=== PATIENT | female | born 1980 | race Caucasian/White ===

== ENCOUNTER 2019-10-04 14:59 | Emergency (ER) | payer OTHER, SELFPAY ==
--- NOTE | ~2019-10-04 | XR_ITS ---
XR chest 2V 10/04/2019 17:16 Indication: Cough. Difficulty breathing. Fever. Procedure: 2 view chest Comparison: 04/26/2010 Findings: Patchy bilateral airspace disease predominantly affecting the left mid and bilateral lower lungs, compatible with pneumonia. No pleural effusion or pneumothorax. Heart size normal. No acute os seous abnormality. Impression: 1: Patchy bilateral airspace disease, compatible with pneumonia. Reviewed, dictated and finalized at location A. Impression: 1: Patchy bilateral airspace disease, compatible with pneumonia.
[2019-10-04 15:56] VITALS: BP 115/64; PULSE 123; RESP 24; TEMP 38.7; O2SAT 97
--- NOTE | 2019-10-04 16:06 | ED.GENADULT ---
HPI - General Adult General Chief complaint: Shortness of Breath/Dyspnea Stated complaint: back pain/chest pain/cough Time Seen by Provider: 10/04/19 16:03 Source: patient and RN notes reviewed Mode of arrival: ambulatory Limitations: no limitations History of Present Illness HPI narrative: 39-year-old female presents with mother, Magalie complain of tactile fever, upper respiratory infection symptoms, dysnea, wheezing, cough with intermittent upper back tenderness for the past 5 days. Mucinex cold and flu and Aleve with little relief, Increase symptoms today with dyspnea and coughing. Cough is persistent, worse when she lies down. Feels ill. Chest feels Heavy. Short of breath when ambulating and at rest. Tactile high fever, chills, and sweats. Exacerbating factor consists of smoke exposure. No nausea, vomiting, and abdominal pain. Denies chest pain, coughing up blood, difficulty swallowing, jaw pain, dental pain, facial pain, foreign body sensation, and rash. Magalie denies being , LMP 1 week ago. Some parts of this dictation were generated by voice recognition software and may contain typographical and/or grammatical inaccuracies. Related Data Home Medications Medication Instructions Recorded Confirmed Mucinex 600 mg PO BID 10/04/19 10/06/19 levothyroxine 75 mcg PO DAILY 10/04/19 10/06/19 omeprazole 20 mg PO DAILY 10/04/19 10/06/19 Allergies Allergy/AdvReac Type Severity Reaction Status Date / Time No Known Allergies Allergy Mild Verified 10/05/19 23:24 Review of Systems Review of Systems: Narrative: CONSTITUTIONAL: Complains of fever, chills, sweats. EYES: Denies visual changes, redness, discharge. ENT: Complains of rhinorrhea, congestion. Denies sore throat. CARDIOVASCULAR: Denies chest pain, palpitations, edema. RESPIRATORY: Complains of wheezes, dyspnea, persistent dry cough. GASTROINTESTINAL: Denies abdominal pain, nausea, vomiting, diarrhea. GENITOURINARY: Denies dysuria, hematuria, abnormal discharge. SKIN: SKIN: Denies rash or itching. MUSCULOSKELETAL: Denies myalgia. Complains of diffused chest wall and upper back tenderness. NEUROLOGIC: Denies numbness or focal weakness. PSYCHIATRIC: Denies anxiety or depression. [facility] Social History Social History Smoking packs per day: 0.5 Smoking cigarettes per day: 10.0 Years smoked: 20 Smoking pack-years: 10.00 Smoking status: Current every day smoker Tobacco type: cigarettes Second hand tobacco smoke exposure: No Alcohol intake: never Substance use: never Gender identity (if verbalized by the patient): Female Spiritual care concerns: No Agree to blood products: Yes Comments At time of signature, agree with nurse past medical, surgical, social, and family history. There is no relevant family history pertinent to the presenting complaint. Exam Narrative: Exam Narrative: GENERAL: This is a well-nourished, well-developed patient, in no apparent distress. Talking in full sentences without deficit and ambulate with steady gait without dyspnea. HEAD: normocephalic, atraumatic. EYES: PERRL. Sclera clear/white. Vision is grossly intact. THROAT: Mucous membranes moist, posterior pharynx clear. NECK: Neck supple, non-tender without lymphadenopathy, masses or thyromegaly. CARDIOVASCULAR: Regular rate and rhythm without murmurs, gallops, or rubs. Diffused mild-moderate reproducible tenderness to chest wall. No crepitus/subq air palpable. Skin intact. No ecchymosis or lesions. No subcutaneous emphysema. RESPIRATORY: Inspiratory and expiratory wheezes in all elias to auscultation with fair gas exchange. Breath sounds equal bilaterally. No rales or rhonchi. GASTROINTESTINAL: Abdomen soft, non-tender, nondistended. Bowel sounds are active. No hepato-splenomegaly, or palpable masses. No guarding. SKIN: warm, intact with no suspicious lesions or rash, good texture and turgor. MARTELL
[2019-10-04] MEDS: predniSONE 20 MG TABLET 60 MG PO (16:21)
[2019-10-04] MEDS: AZITHROMYCIN 250 MG TABLET 500 MG PO (16:22)
[2019-10-04] MEDS: ALBUTEROL SULFATE NEB 2.5 MG/3 ML INH INHALATION (16:22)
[2019-10-04] MEDS: IBUPROFEN 400 MG TABLET 800 MG PO (16:22)
[2019-10-04] MEDS: IPRATROPIUM BR 0.02% INH SOLN 0.5 MG/2.5 ML VIAL INHALATION (16:23)
--- NOTE | 2019-10-04 16:33 | PC.NURSE ---
meds given per order, receiving neb now
[2019-10-04 17:49] VITALS: BP 125/62; PULSE 122; RESP 20; TEMP 38.2; O2SAT 96
== END 2019-10-04 17:50 | disposition home or self-care (01) ==
PROVIDERS: Emergency Provider Nurse Practitioner Family
DX: R05 Cough (principal); J18.9 Pneumonia, unspecified organism; F17.210 Nicotine dependence, cigarettes, uncomplicated; K21.9 Gastro-esophageal reflux disease without esophagitis; E03.9 Hypothyroidism, unspecified
CPT/HCPCS: 71046; 99213; A9270; G0463; J7512

== ENCOUNTER 2019-10-05 20:45 | Inpatient (IN) | payer OTHER, SELFPAY ==
--- NOTE | ~2019-10-05 | XR_ITS ---
XR chest 1V 10/05/2019 22:24 Indication: Pneumonia. Nausea and vomiting. Procedure: AP portable chest Comparison: 10/04/2019 Findings: Patchy bilateral airspace disease, compatible with pneumonia. No pleural effusion. No pneum othorax. Heart size upper normal for technique. Impression: 1: Patchy bilateral airspace disease, compatible with pneumonia. No significant change allowing for t echnique. Reviewed, dictated and finalized at location A. Impression: 1: Patchy bilateral airspace disease, compatible with pneumonia. No significant change allowing for technique.
[2019-10-05 20:57] VITALS: BP 122/65; PULSE 100; RESP 16; TEMP 36.3; O2SAT 100
[2019-10-05 21:09] LABS: Basophils Percent Auto 0.2 % (0.2-1.2); Hematocrit 31.1 % (37.0-47.0); Hemoglobin 9.7 g/dL (12.0-15.0); Immature Granulocyte Percent A 0.5 % (0-0.5); Lymphocytes Absolute Auto 1.37 K/mm3 (0.9-3.2); Lymphocytes Percent Auto 6.4 % (18.3-44.2); Mean Corpuscular HGB Conc 31.2 g/dl (32-36); Mean Corpuscular Hemoglobin 23.1 pg (26-34); Monocytes Absolute Auto 0.6 K/mm3 (0.1-0.6); Monocytes Percent Auto 2.7 % (2.6-8.5); Neutrophils Absolute Auto 19.4 K/mm3 (1.3-6.7); Neutrophils Percent Auto 90.2 % (45.5-73.1); Platelet Count Result 297 k/mm3 (150-375); White Blood Count 21.5 K/mm3 (4.5-10.0)
[2019-10-05 21:19] LABS: Ovalocytes 1+ (NORMAL); Platelet Estimate Adequate (Adequate)
[2019-10-05 21:21] LABS: Alanine Aminotransferase 37 U/L (4-35); Albumin Level 4.2 g/dL (3.5-5.1); Alkaline Phosphatase 78 U/L (38-126); Aspartate Amino Transferase 50 U/L (14-36); Bilirubin,Total 0.4 mg/dL (0.2-1.3); Blood Urea Nitrogen 15 mg/dL (7-17); Calcium 9.5 mg/dL (8.4-10.2); Carbon Dioxide 21 mmol/L (22-30); Chloride 107 mmol/L (98-107); Estimated CRCL calculation 99 ml/min; Estimated Glomerular Filt Rate > 60; Glucose 134 mg/dL (65-105); Lipase 13 U/L (23-300); Potassium 3.2 mmol/L (3.4-5.0); Sodium 139 mmol/L (137-145)
[2019-10-05 22:02] LABS: Add Urine Microscopic? YES; Appearance Urine Clear (Clear); Bilirubin Urine 1+ (Negative); Blood Urine 1+ (Negative); Color Urine Yellow (Yellow); Glucose Urine UA Negative (Negative); Ketones Urine Trace mg/dL (Negative); Leukocyte Esterase Ur Negative LEU/UL (Negative); Mucus Urine Heavy /lpf; Nitrate Urine Negative (Negative); Protein Urine 1+ mg/dL (Negative); Specific Grav Ur 1.038 (1.001-1.035); Squamous Epithelial Cell Urine Few /hpf (Few); Urobilinogen Urine Negative mg/dL (<2.0); WBC Urine 0-3 /hpf
--- NOTE | 2019-10-05 22:04 | ED.NAVMDI ---
HPI - Nausea/Vomiting/Diarrhea General Chief complaint: Nausea/Vomiting/Diarrhea Stated complaint: n/v Time Seen by Provider: 10/05/19 21:46 Source: patient and RN notes reviewed Mode of arrival: ambulatory Limitations: no limitations History of Present Illness HPI Narrative: A 39 y/o female presents to the ED with N/V beginning this morning. She states that she was dx with pneumonia at yesterday. She reports that she has vomited roughly 12 times today and that eating and drinking aggravate her symptoms. She notes that shes had a cough and diarrhea for the past week, and that she had a fever which has since resolved. She also notes that she was placed on a Z-pack and Augmentin yesterday. She denies any ABD pain, CP, or SOB. MD elicited complaint: nausea and vomiting Onset (ago): hour(s) (this morning) Associated nausea: Yes Associated abdominal pain: No Location of pain: none Exacerbating factors: eating (and drinking) Relieving factors: none Context: recent antibiotic use and new medication Associated symptoms: cough, fever/chills (fevers resolved) and other (diarrhea) Related Data Home Medications Medication Instructions Recorded Confirmed Mucinex 10/04/19 levothyroxine 10/04/19 omeprazole 10/04/19 Allergies Allergy/AdvReac Type Severity Reaction Status Date / Time No Known Allergies Allergy Mild Verified 10/05/19 23:24 Review of Systems Review of Systems: All systems reviewed & are unremarkable except as noted in HPI and below Constitutional: Constitutional: Reports fever(s) (resolved) Cardiovascular: Cardiovascular: Denies chest pain Respiratory: Respiratory: Reports cough and Denies dyspnea Gastrointestinal: Gastrointestinal: Denies abdominal pain, Reports diarrhea, Reports nausea and Reports vomiting PMFSH Past Medical History Medical History Bronchitis History of gastroesophageal reflux (GERD) Hypothyroidism Walking pneumonia Surgical History Surgical History No significant past surgical history Family History Family History Mother Hypertension Social History Social History Smoking packs per day: 0.5 Smoking cigarettes per day: 10.0 Years smoked: 20 Smoking pack-years: 10.00 Smoking status: Current every day smoker Second hand tobacco smoke exposure: No Alcohol intake: never Substance use: never Gender identity (if verbalized by the patient): Female Exam Narrative: Exam Narrative: General appearance: Well-developed, well-nourished, moderately side, patient looks ill with intermittent persistent coughing Skin: Normal color Head: Normocephalic, nontraumatic Eyes: Clear conjunctiva ENT: Oropharynx normal, ears normal, nose normal Neck: Supple, nontender Chest and respiratory: Airway patent, no respiratory distress, no accessory muscle use, diminution of air entry bilaterally, scattered rhonchi Heart: Regular rate/rhythm Abdomen: Soft, nontender, no organomegaly, quiet bowel sounds Vascular: Normal peripheral pulses, normal capillary refill. Musculoskeletal: Normal range of motion, nontender back Neurologic: Alert and oriented ?3, CLINICAL RESEARCH NURSE is normal as tested, no gross motor deficit Course Course Emergency Course: Improving Consultations Consultation #1: Discussed case with Dr. King (Hospitalist). Accepts the pt. Date: 10/05/19 Time: 23:02 Vital Signs Vital signs: Vital Signs Temperature 36.3 C L 10/05/19 20:57 Pulse Rate 100 10/05/19 20:57 Respiratory Rate 16 10/05/19 20:57 Blood Pressu
[2019-10-05] MEDS: KETOROLAC 30 MG/ML VIAL (*BKC) IV PUSH (22:33)
[2019-10-05] MEDS: SODIUM CHLORIDE 0.9% IV 1,000 ML 999 ML IV CONT (22:34)
[2019-10-05] MEDS: ONDANSETRON INJ 4 MG/2 ML VIAL IV PUSH (22:34)
[2019-10-05 23:11] VITALS: BP 119/75; PULSE 95; RESP 20; O2SAT 94
--- NOTE | 2019-10-05 23:15 | PC.NURSE ---
Assumed care of patient from KELL Springer. Patient resting in stretcher with visitor at bedside, medications administered per MAR. VSS, call light within reach, Dr. King at bedside.
--- NOTE | 2019-10-05 23:27 | PM.IMHP ---
H&P: HPI History of Present Illness Chief complaint: Pneumonia, tobacco dependence, hypokalemia Narrative: This is a 39 year old obese female with known history of hypothyroidism and GERD who presented to the hospital with a history of 1 week of nonproductive hacking persistent cough, fever, wheezing, and shortness of breath. The patient was started on azithromycin and Augmentin yesterday and today she started to have nausea and vomiting. She reports that she vomited 12 times. She reported that any PO intake worsens her nausea. She also reports mild right costal tenderness w/ coughing. She did have a sore throat a few days ago but this has resolved. Sick contacts++ Her nephews had strep throat this past week. The patient was evaluated in the ER and found to have an elevated WBC of 21,500 and CXR demonstrated patchy bilateral airspace disease. Review of Systems Review of Systems: All systems reviewed & are unremarkable except as noted in HPI and below PMFSH Past Medical History Medical History Bronchitis History of gastroesophageal reflux (GERD) Hypothyroidism Walking pneumonia Surgical History Surgical History No significant past surgical history Family History Family History Mother Hypertension Social History Social History Smoking packs per day: 0.5 Smoking cigarettes per day: 10.0 Years smoked: 20 Smoking pack-years: 10.00 Smoking status: Current every day smoker Tobacco type: cigarettes Second hand tobacco smoke exposure: No Alcohol intake: never Substance use: never Gender identity (if verbalized by the patient): Female Spiritual care concerns: No Agree to blood products: Yes Meds Home Medications and Allergies Home Medications Medication Instructions Recorded Confirmed Type Mucinex 600 mg PO BID 10/04/19 10/06/19 History albuterol sulfate [ProAir HFA] 2 puff INHALATION Q4H #18 gm 10/04/19 10/06/19 Rx amoxicillin-pot clavulanate 1 tablet PO Q12H #14 tablet 10/04/19 10/06/19 Rx azithromycin See Rx Instructions .ROUTE 10/04/19 10/06/19 Rx .COMPLEX #6 tablet benzonatate 100 mg PO TID #30 cap 10/04/19 10/06/19 Rx fluticasone propionate [Allergy 1 spray NASAL BID #16 ml 10/04/19 10/06/19 Rx Relief (fluticasone)] inhalational spacing device #1 each 10/04/19 10/06/19 Rx levothyroxine 75 mcg PO DAILY 10/04/19 10/06/19 History loratadine [Claritin] 10 mg PO DAILY 30 Days #30 tablet 10/04/19 10/06/19 Rx omeprazole 20 mg PO DAILY 10/04/19 10/06/19 History Allergies Allergy/AdvReac Type Severity Reaction Status Date / Time No Known Allergies Allergy Mild Verified 10/05/19 23:24 Vital Signs Vital Signs - 24 hr 10/05/19 20:57 10/05/19 23:11 Temperature 36.3 C L Pulse Rate 100 95 Respiratory Rate 16 20 Blood Pressure 122/65 119/75 Pulse Oximetry 100 94 Exam Const: General: cooperative, alert, awake and anxious Nutritional Appearance: obese Orientation/consciousness: patient oriented x3 HENMT: Head: normal to inspection General nose exam: Normal external nose present Face and sinus: normal facial exam Mouth: Yes Normal oral and palatal mucosa present and Yes oropharynx normal Eyes: Pupils: Equal, round and reactive pupils present EOM: EOMs intact bilaterally Neck: Neck: supple and no JVD Thyroid: thyroid normal Lymphatic: lymphadenopathy not noted Resp: Effort & Inspection: normal respiratory effort Auscultation: crackles bilateral and wheezes throughout Cardio: Rate: tachycardic Rhythm: regular rhythm Heart sounds: no murmurs GI: Inspection: normal to inspection Auscultation: normal bowel sounds Skin: General skin exam: normal color and no rashes or lesions noted Neuro: General: patient oriented x3 Cranial nerves: Yes CN's II-XII
[2019-10-05 23:51] VITALS: TEMP 36.9
[2019-10-06] VITALS (16 sets, daily range): BP systolic 105–128; BP diastolic 44–75; PULSE 96–113; RESP 16–22; TEMP 36.1–37.3; O2SAT 90–99; BMI 36.8
[2019-10-06] MEDS: LACTATED RINGERS 1,000 ML 125 ML IV CONT ×3 (01:04→20:59)
[2019-10-06] MEDS: KCL 20 MEQ/SW 100 ML 100 ML 50 MEQ IVPB (01:04)
[2019-10-06] MEDS: ALBUTEROL SULFATE NEB 2.5 MG/0.5 ML INH 5 MG INHALATION ×3 (02:28→14:26)
[2019-10-06 05:12] LABS: Basophils Percent Auto 0.1 % (0.2-1.2); Hematocrit 26.8 % (37.0-47.0); Hemoglobin 8.4 g/dL (12.0-15.0); Immature Granulocyte Absolute 0.12 K/mm3 (0.00-0.031); Immature Granulocyte Percent A 0.6 % (0-0.5); Lymphocytes Absolute Auto 2.94 K/mm3 (0.9-3.2); Lymphocytes Percent Auto 14.6 % (18.3-44.2); Mean Corpuscular HGB Conc 31.3 g/dl (32-36); Mean Corpuscular Hemoglobin 23.1 pg (26-34); Mean Corpuscular Volume 73.8 fl (80-100); Mean Platelet Volume 8.9 fl (7.4-10.4); Monocytes Absolute Auto 0.7 K/mm3 (0.1-0.6); Monocytes Percent Auto 3.7 % (2.6-8.5); Neutrophils Absolute Auto 16.3 K/mm3 (1.3-6.7); Platelet Count Result 278 k/mm3 (150-375); Red Blood Count 3.63 M/mm3 (4.2-5.4); Red Cell Distribution Width 15.9 % (11.5-14.5); White Blood Count 20.1 K/mm3 (4.5-10.0)
[2019-10-06 05:30] LABS: Blood Urea Nitrogen 12 mg/dL (7-17); Calcium 8.6 mg/dL (8.4-10.2); Carbon Dioxide 20 mmol/L (22-30); Chloride 107 mmol/L (98-107); Estimated CRCL calculation 114 ml/min; Estimated Glomerular Filt Rate > 60; Glucose 90 mg/dL (65-105); Magnesium 1.8 mg/dL (1.6-2.3); Potassium 2.9 mmol/L (3.4-5.0); Sodium 137 mmol/L (137-145)
[2019-10-06] MEDS: LEVOTHYROXINE SODIUM INJ 100 MCG/5 ML VIAL 37.5 MCG IV PUSH (06:39)
[2019-10-06] MEDS: ACETAMINOPHEN 325 MG TABLET 650 MG PO ×3 (06:51→18:05)
[2019-10-06] MEDS: PANTOPRAZOLE SODIUM IV 40 MG VIAL IV PUSH (08:02)
[2019-10-06] MEDS: POTASSIUM CHLORIDE 20 MEQ PACKET (FOR LIQUID) PO (08:02)
[2019-10-06 13:43] LABS: IFOB Positive Control Positive; Immunochemical Fecal Occult Bl Negative (N)
--- NOTE | 2019-10-06 16:54 | PM.IMPN ---
Progress Note: A&P Assessment and Plan (1) Bilateral pneumonia: Qualifiers: Lung location: unspecified part of lung Pneumonia type: due to unspecified organism Qualified Code(s): J18.9 - Pneumonia, unspecified organism Code(s): J18.9 - Pneumonia, unspecified organism Status: Acute Assessment and Plan: Pt with cough since last Wednesday and GI sx with onset . Febrile at admission which has resolved. She also endorses body aches (back, mild). She denies chest pain. Viral vs. Bacterial pneumonia? Continue empiric IV azithromycin and ceftriaxone Blood and sputum cultures pending Legionella and pneumococcal urine antigen ordered and pending Continue bronchodilators Continue chest physiotherapy Continuous pulse oximetry Supplemental oxygen as needed to maintain pulse ox >92% Will order influenza testing as I do not see this documented in the chart (2) Sepsis: Qualifiers: Sepsis acute organ dysfunction status: without acute organ dysfunction Sepsis type: sepsis due to unspecified organism Qualified Code(s): A41.9 - Sepsis, unspecified organism Code(s): A41.9 - Sepsis, unspecified organism Status: Acute Assessment and Plan: Pt meeting SIRS criteria. Suspected source is pneumonia. She was febrile at admission. She has no fevers today. Continue empiric antibiotic therapy Blood cultures pending Continue IV fluids (3) Leukocytosis: Qualifiers: Leukocytosis type: unspecified Qualified Code(s): D72.829 - Elevated white blood cell count, unspecified Code(s): D72.829 - Elevated white blood cell count, unspecified Status: Acute Assessment and Plan: Suspect that this is secondary to pneumonia. She has a left shift. Will continue to monitor (4) Hypokalemia: Code(s): E87.6 - Hypokalemia Status: Acute Assessment and Plan: Potassium 2.9 today. Pt received 40mEq IV. Will continue to monitor and replace as indicated (5) Hypothyroidism: Qualifiers: Hypothyroidism type: unspecified Qualified Code(s): E03.9 - Hypothyroidism, unspecified Code(s): E03.9 - Hypothyroidism, unspecified Status: Chronic Assessment and Plan: Continue levothryoxine Will check TSH w reflex to fT4 (6) History of gastroesophageal reflux (GERD): Code(s): Z87.19 - Personal history of other diseases of the digestive system Status: Chronic Assessment and Plan: Continue PPI therapy (7) Transaminitis: Code(s): R74.0 - Nonspecific elevation of levels of transaminase and lactic acid dehydrogenase [LDH] Status: Acute Assessment and Plan: Pt with transaminitis at admission. She reports hx of cirrhosis of unknown cause. She reports this was discovered on CT abd/pelvis from [facility]. She also saw GI at [facility]. Will request records Will repeat LFTs tomorrow Subjective Date/time seen: 10/06/19 16:54 Interval history: Mrs. Thibodeaux is seen and examined at bedside. She reports that she is feeling somewhat better. She reports frequent green/yellow diarrhea (5x today). She reports appetite is fine and she was able to eat lunch without vomiting or significant nausea. She denies chest pain. She denies SOB. She reports nonproductive cough. She has mild costal tenderness from her repeated episodes of vomiting yesterday and her cough. Review of Systems Review of Systems: All systems reviewed & are unremarkable except as noted in HPI and below Exam Narrative: Exam Narrative: General: Obese female sitting up in bed. No acute distress. Cooperative. Head: Normocephalic and atraumatic. Eyes: Conjunctivae and lids normal. PERRL. EOMI. Ears: External ears normal without lesions or deformity. Nose: External nose normal without nasal discharge. Mouth and Throat: Mucous membranes dry. Posterior pharynx without erythema or exudate. Neck: Supple. No lym
[2019-10-06 18:14] LABS: Influenza Control Positive
[2019-10-06] MEDS: FLUTICASONE PROPIONATE 0.05% NA SPR 16 GM BTL (*BKC) 1 SPRAY NASAL (18:43)
[2019-10-06 19:02] LABS: Potassium 3.3 mmol/L (3.4-5.0)
[2019-10-06] MEDS: LEVALBUTEROL NEB 1.25 MG/3 ML 0.63 MG INHALATION (21:03)
[2019-10-06] MEDS: POTASSIUM CHLORIDE 20 MEQ TABLET.ER PO (21:31)
[2019-10-07] VITALS (9 sets, daily range): BP systolic 123–129; BP diastolic 69–83; PULSE 96–110; RESP 18–20; TEMP 36.1–36.7; O2SAT 91–96
[2019-10-07] MEDS: LEVALBUTEROL NEB 1.25 MG/3 ML 0.63 MG INHALATION ×3 (02:09→16:05)
[2019-10-07 05:43] LABS: Basophils Percent Auto 0.1 % (0.2-1.2); Hematocrit 24.9 % (37.0-47.0); Hemoglobin 7.7 g/dL (12.0-15.0); Immature Granulocyte Absolute 0.11 K/mm3 (0.00-0.031); Immature Granulocyte Percent A 0.8 % (0-0.5); Lymphocytes Absolute Auto 1.99 K/mm3 (0.9-3.2); Lymphocytes Percent Auto 14.9 % (18.3-44.2); Mean Corpuscular HGB Conc 30.9 g/dl (32-36); Mean Corpuscular Volume 74.3 fl (80-100); Mean Platelet Volume 9.1 fl (7.4-10.4); Monocytes Absolute Auto 0.7 K/mm3 (0.1-0.6); Monocytes Percent Auto 5.2 % (2.6-8.5); Neutrophils Absolute Auto 10.6 K/mm3 (1.3-6.7); Platelet Count Result 288 k/mm3 (150-375); Red Blood Count 3.35 M/mm3 (4.2-5.4); Red Cell Distribution Width 16.2 % (11.5-14.5); White Blood Count 13.4 K/mm3 (4.5-10.0)
[2019-10-07] MEDS: LEVOTHYROXINE SODIUM 75 MCG TABLET PO (05:43)
[2019-10-07] MEDS: LACTATED RINGERS 1,000 ML 125 ML IV CONT (05:45)
[2019-10-07 06:04] LABS: Alanine Aminotransferase 24 U/L (4-35); Albumin Level 3.3 g/dL (3.5-5.1); Alkaline Phosphatase 68 U/L (38-126); Aspartate Amino Transferase 28 U/L (14-36); Bilirubin,Total 0.2 mg/dL (0.2-1.3); Blood Urea Nitrogen 4 mg/dL (7-17); Calcium 8.5 mg/dL (8.4-10.2); Carbon Dioxide 22 mmol/L (22-30); Chloride 107 mmol/L (98-107); Creatine Kinase 678 U/L (30-135); Estimated CRCL calculation 134 ml/min; Estimated Glomerular Filt Rate > 60; Glucose 103 mg/dL (65-105); Lactate Dehydrogenase 566 U/L (313-618); Magnesium 1.9 mg/dL (1.6-2.3); Phosphorus 3.4 mg/dL (2.5-4.5); Potassium 3.3 mmol/L (3.4-5.0); Sodium 138 mmol/L (137-145)
[2019-10-07 08:37] LABS: Total Triiodothyronine (T3) 0.98 NG/ML (0.97-1.69)
[2019-10-07] MEDS: POTASSIUM CHLORIDE 20 MEQ TABLET.ER PO (08:38)
[2019-10-07] MEDS: LORATADINE 10 MG TABLET PO (08:38)
[2019-10-07] MEDS: PANTOPRAZOLE 40 MG TABLET PO (08:38)
[2019-10-07] MEDS: FLUTICASONE PROPIONATE 0.05% NA SPR 16 GM BTL (*BKC) 1 SPRAY NASAL (08:40)
[2019-10-07] MEDS: ACETAMINOPHEN 325 MG TABLET 650 MG PO ×2 (10:23→15:19)
[2019-10-07 15:41] LABS: Iron 14 ug/dL (37-170)
[2019-10-07 15:48] LABS: Transferrin 239 mg/dL (206-381)
[2019-10-07 16:50] LABS: Folic Acid 6.9 ng/mL (2.76->20)
--- NOTE | 2019-10-07 17:05 | PM.IMPN ---
Progress Note: A&P Assessment and Plan (1) Bilateral pneumonia: Qualifiers: Pneumonia type: due to unspecified organism Lung location: unspecified part of lung Qualified Code(s): J18.9 - Pneumonia, unspecified organism Code(s): J18.9 - Pneumonia, unspecified organism Status: Acute (2) Sepsis: Qualifiers: Sepsis type: sepsis due to unspecified organism Sepsis acute organ dysfunction status: without acute organ dysfunction Qualified Code(s): A41.9 - Sepsis, unspecified organism Code(s): A41.9 - Sepsis, unspecified organism Status: Acute (3) Leukocytosis: Qualifiers: Leukocytosis type: unspecified Qualified Code(s): D72.829 - Elevated white blood cell count, unspecified Code(s): D72.829 - Elevated white blood cell count, unspecified Status: Acute (4) Hypokalemia: Code(s): E87.6 - Hypokalemia Status: Acute (5) Hypothyroidism: Qualifiers: Hypothyroidism type: unspecified Qualified Code(s): E03.9 - Hypothyroidism, unspecified Code(s): E03.9 - Hypothyroidism, unspecified Status: Chronic (6) History of gastroesophageal reflux (GERD): Code(s): Z87.19 - Personal history of other diseases of the digestive system Status: Chronic (7) Transaminitis: Code(s): R74.0 - Nonspecific elevation of levels of transaminase and lactic acid dehydrogenase [LDH] Status: Acute Additional Plan Patient with findings consistent with bilateral pneumonia and sepsis on admission. Also noted to have transaminitis. Given all circumstances, extensive testing initiated. Influenza screen is negative. Other tests are still pending at this time. After multiple conversations between providers, infection control and health department, decision was made for commercial testing for coronavirus. Patient was advised coronavirus less likely. Nasopharyngeal swab for coronavirus to the obtained prior to discharge today. Patient aware lab will only from test if all other testing is negative. Patient also aware may take 4-7 days for test results if test performed. WBC has decreased to 13.4 today. Potassium still low at 3.3 today with replacement given. CK 678. TSH 4.710. Patient has been on IV azithromycin and ceftriaxone. She is on room air. With patient improved, will discharge home today to complete treatment with oral cefdinir. Patient be notified of other test results once available. Will be sent home with potassium. Plan to follow-up lab work in approximately 2 weeks. Patient instructed to stay at home with her pneumonia. Work excuse given. Patient to follow-up with her primary provider as an outpatient but return if any problems. Time Spent With Patient Time with patient: 15 - 25 minutes Subjective Date/time seen: 10/07/19 17:05 Interval history: Date of Service: 10/07/2019. Patient admitted with bilateral pneumonia, sepsis. Case reviewed and discussed with PA. Patient seen with PA this afternoon. Patient is feeling better. She does still have slight cough but improved. No current chest pain. No current shortness of breath. No headache or dizziness. Wants to go home. Review of Systems Cardiovascular: Cardiovascular: Denies chest pain Respiratory: Respiratory: Reports cough and Denies dyspnea Gastrointestinal: Gastrointestinal: Denies abdominal pain, Denies nausea and Denies vomiting Neurologic: Denies headache(s) Psychiatric: Psychiatric: Denies confusion Exam Narrative: Exam Narrative: Awake and alert. Const: General: no acute distress Neck: Neck: supple Lymphatic: lymphadenopathy not noted Resp: Auscultation: no wheezes and diminished lung sounds Other: Crackles at bases Cardio: Rate: regular rate Rhythm: regular rhythm Neuro: Cognition (Neuro): normal cognition Speech: normal speech Psych: Affect: No Anxious affect present Objective Data Vital Signs Vital Signs: Vital Signs - 2
--- NOTE | 2019-10-07 23:22 | PM.DS ---
DS: Diagnosis Admitting Diagnosis Admitting Diagnosis: Pneumonia, unspecified organism Discharge Diagnosis (1) Bilateral pneumonia: Qualifiers: Lung location: unspecified part of lung Pneumonia type: due to unspecified organism Qualified Code(s): J18.9 - Pneumonia, unspecified organism Code(s): J18.9 - Pneumonia, unspecified organism Status: Acute Assessment and Plan: Mrs. Thibodeaux is a 39 y.o. female who presented with c/o dry, non-productive cough since Wednesday (09/28), myalgias, profound fatigue, fever, chills, diarrhea, and vomiting (onset 10/04). She reported that she was diagnosed with pneumonia at on Wednesday and prescribed augmentin and azithromycin. She met SIRS criteria at admission due to leukocytosis, tachycardia and fever with PNA suspected as the source. She was SOB but not hypoxic. CXR with diffuse patchy bilateral airspace disease. Labs were significant for leukocytosis with a left shift, mildly elevated AST and ALT, and elevated CK. She had a macrocytic anemia with Hb 9.7 at admission. Rapid influenza A & B were negative. She was treated empirically with azithromycin and ceftriaxone. She reported a sick contact at her work with similar sx. Clinical presentation was felt to be more suggestive of a viral pneumonia. Source was unknown as rapid influenza was negative. Other viral respiratory pathogens were considered to be more likely since the pt had no prior travel hx or known sick contacts. However, because she had a a fever with lower respiratory tract illness requiring hospitalization, COVID-19 could not be ruled out as a potential source. An extensive workup was performed per [facility] recommendations and the pt was placed on droplet precautions per hospital protocol. [facility] was notified of concerns and advised that the decision to test was based on provider discretion. On the day of discharge, she reported that she was no longer vomiting. She was tolerating PO intake. She was not requiring oxygen and WBC count was trending down. She requested to go home. She was advised to quarantine for 14 days or until she was notified that an alternative source was confirmed and she was provided with a work excuse. She was advised to finish her course of azithromycin. Cefdinir was prescribed. Augmentin was discontinued. Dr. Mata and I had a long discussion with the pt regarding the reasons for precautions and additional testing. The pt and her family verbalized understanding that the COVID-19 test was a commercial test that would be billed through her insurance. They were in agreement that we proceed with testing. I discussed that [facility] advised that they will wait for the initial viral culture testing of other viral pathogens and will only process the COVID-19 test if those are negative. I discussed that the commercial test can take 4-7 days to result. Pt was prescribed potassium since it was low. She was also iron deficient so she was prescribed PO ferrous sulfate and advised the pt to follow-up with her PCP in 2 weeks for repeat labs (CBC, CMP, CK). She was advised to call 911 should she develop respiratory distress, chest pain, profound weakness, or any other concerning sx. (2) Sepsis: Qualifiers: Sepsis acute organ dysfunction status: without acute organ dysfunction Sepsis type: sepsis due to unspecified organism Qualified Code(s): A41.9 - Sepsis, unspecified organism Code(s): A41.9 - Sepsis, unspecified organism Status: Acute Assessment and Plan: Pt met SIRS criteria. The suspected source was pneumonia. Blood cultures are pending. Fever resolved. Pt is hemodynamically stable. (3) Leukocytosis: Qualifiers: Leukocytosis type: unspecified Qualified Code(s): D72.829 - Elevated white blood cell count, unspecified Code(s): D72.829 - Elevated white blood cell count, unspecified Status: Acute Assessment and Plan: WBC count was 21.5 at
[2019-10-09 15:04] LABS: Legionella pneumophila Ag Ur Not Detected (Not Detected)
[2019-10-09 15:19] LABS: Pneumococcal Antigen Urine Not Detected (Not Detected)
[2019-10-16 11:46] LABS: Reference Lab Test Result Not Detected
== END 2019-10-07 17:50 | disposition home or self-care (01) | DRG 871 ==
LOC: ANHED 23:18 → ANH2MED 10-06 00:18
PROVIDERS: Physician Assistant; Admitting Provider Family Medicine; Emergency Provider Emergency Medicine; Visit Provider Hospitalist
DX: A41.9 Sepsis, unspecified organism (principal); J18.9 Pneumonia, unspecified organism; E87.6 Hypokalemia; E03.9 Hypothyroidism, unspecified; K21.9 Gastro-esophageal reflux disease without esophagitis; F17.210 Nicotine dependence, cigarettes, uncomplicated
CPT/HCPCS: 36415; 71045; 80048; 80053; 81001; 81025; 82274; 82550; 82607; 82728; 82746; 83540; 83615; 83690; 83735; 84100; 84132; 84439; 84443; 84466; 84480; 85025; 87040; 87070; 87205; 87252; 87449; 87486; 87502; 87581; 87635; 87804; 87899; 94640; 96365; 96375; 99285; A9270; C9113; J0456; J0696; J1885; J2405; J3480; J7030; J7120; U0002